=== PATIENT | female | born 1945 | race African-American/Black ===

== ENCOUNTER 2022-02-11 20:21 | Observation (INO) | payer MEDICARE, SELFPAY ==
[2022-02-11] MEDS ORDERED: Nitroglycerin 2% Ointment 1 INCH/1 GM Packet ONE (20:53)
[2022-02-11] MEDS ORDERED: Labetalol HCl 100 MG/20 ML VIAL ONE (20:53)
[2022-02-11 20:54] LABS: #Basophils 0.1 thou/uL (0.0-0.2); #Eosinphils 0.1 thou/uL (0.0-0.7); #Lymphocytes 3.5 thou/uL (1.20-3.40); #Monocytes 0.3 thou/uL (0.11-0.59); #Neutrophils 3.9 thou/uL (1.40-6.50); %Basophils 0.7 % (0.0-1.0); %Eosinophils 1.1 % (0.0-10.0); %Lymphocytes 44.8 % (21.0-51.0); %Monocytes 4.2 % (0.0-10.0); %Neutrophils 49.2 % (42.0-75.0); Hemoglobin 13.4 g/dL (12.0-16.0); Mean Corpuscular HGB CONC 32.8 g/dL (32.0-36.0); Mean Corpuscular Hemoglobin 30.1 pg (27.0-31.0); Mean Corpuscular Volume 91.6 fL (78.0-98.0); Mean Platelet Volume 7.1 fL (7.4-10.4); Platelet Count 339 thou/uL (130-400); RBC Distribution Width 13.1 % (11.5-14.5); Red Blood Cell (RBC) Count 4.46 mill/uL (4.20-5.40); White Blood Cell (WBC) Count 7.9 thou/uL (4.8-10.8)
[2022-02-11 21:13] LABS: ALT (SGPT) 23 U/L (8-55); AST (SGOT) 27 U/L (5-34); Albumin 4.7 g/dL (3.4-4.8); Alkaline Phosphatase 76 U/L (40-110); Anion Gap 15 mmol/L (10-20); BUN (Urea Nitrogen) 12 mg/dL (9.8-20.1); Bilirubin, Total 0.3 mg/dL (0.2-1.2); Calc. Creatinine Clearance 0 mL/min (70-130); Calcium 9.6 mg/dL (7.8-10.44); Carbon Dioxide 30 mmol/L (23-31); Chloride 102 mmol/L (98-107); Globulin 3.3 g/dL (2.4-3.5); Glucose 133 mg/dL (83-110); Potassium 3.5 mmol/L (3.5-5.1); Sodium 143 mmol/L (136-145)
[2022-02-11 21:34] LABS: CKMB 4.6 ng/mL (0-6.6)
[2022-02-11] MEDS ORDERED: hydrALAZINE 20 MG/ML VIAL ONE (21:49)
[2022-02-11] MEDS ORDERED: Aspirin 325 MG TAB ONE (21:49)
[2022-02-11] MEDS ORDERED: Bisacodyl 5 MG TAB PO PRN (22:21)
[2022-02-11] MEDS ORDERED: Zolpidem Tartrate 5 MG TAB PO PRN (22:21)
[2022-02-11] MEDS ORDERED: Acetaminophen 325 MG TAB PO PRN (22:21)
[2022-02-11] MEDS ORDERED: HYDROcodone/Acetaminophen 5/325 mg Tablet PO PRN (22:21)
[2022-02-11] MEDS ORDERED: Ondansetron PF 4 MG/2 ML Vial IVP PRN (22:21)
[2022-02-11] MEDS ORDERED: NIFEdipine XL 90 MG TAB PO SCH (22:23)
[2022-02-11] MEDS ORDERED: Morphine 2 MG/ML VIAL SLOW IVP SCH (22:30)
[2022-02-11] MEDS ORDERED: Triamterene/Hydrochlorothiazide 37.5 mg/25 mg Tablet PO SCH (22:30)
[2022-02-11] MEDS ORDERED: Clopidogrel Bisulfate 75 MG TAB PO SCH (22:39)
[2022-02-11] MEDS ORDERED: Aspirin 81 mg Enteric Coated Tablet PO SCH (22:45)
[2022-02-11 22:57] LABS: Bacteria/HPF 1+ HPF (None Seen); Bilirubin Negative (Negative); Blood, Urine 1+ (Negative); Clarity Turbid (Clear); Glucose, Urine (Dipstick) Normal (Negative); Ketone, Urine Negative (Negative); Leukocyte Negative Leu/uL (Negative); Nitrite Negative (Negative); Protein, Urine (Dipstick) 30 mg/dL (Neg-Trace); Specific Gravity, Urine 1.014 (1.002-1.036); Squamous Epithelial None Seen HPF (0-3); Urobilinogen Normal mg/dL (Less than 2); pH, Urine 7.5 (5.0-9.0)
[2022-02-12] MEDS ORDERED: Clopidogrel Bisulfate 75 MG TAB PO SCH ×2 (00:45→09:00)
[2022-02-12 00:47] LABS: Troponin I 0.056 ng/mL (< 0.028)
[2022-02-12] MEDS ORDERED: NIFEdipine XL 90 MG TAB PO SCH (02:15)
[2022-02-12 02:52] VITALS: BMI 31.1
[2022-02-12 03:08] LABS: Cardiac Risk 3.9 (Less than 4.5)
[2022-02-12 03:13] LABS: Troponin I 0.047 ng/mL (< 0.028)
[2022-02-12] MEDS ORDERED: Metoprolol Tartrate 50 MG TAB PO SCH ×2 (04:15→21:00)
[2022-02-12] MEDS ORDERED: Aspirin 81 mg Enteric Coated Tablet PO SCH (09:00)
[2022-02-12] MEDS ORDERED: Triamterene/Hydrochlorothiazide 37.5 mg/25 mg Tablet PO SCH (09:00)
[2022-02-12] MEDS ORDERED: Enoxaparin Sodium 40 MG/0.4 ML SYRINGE SC SCH (09:00)
[2022-02-12] MEDS ORDERED: Famotidine 20 MG TAB PO SCH (09:00)
[2022-02-12 12:06] VITALS: BP 160/84; TEMP 98
[2022-02-12] MEDS ORDERED: hydrALAZINE 25 MG TAB PO SCH (12:15)
[2022-02-13] MEDS ORDERED: NIFEdipine XL 90 MG TAB PO SCH (09:00)
== END 2022-02-12 13:38 | disposition home or self-care (01) ==
LOC: ERS 20:21 → NEURO 22:09
PROVIDERS: ADMIT Family Medicine; ATTEND Family Medicine
DX: I16.0 Hypertensive urgency (principal); G44.209 Tension-type headache, unspecified, not intractable; R77.8 Other specified abnormalities of plasma proteins; I10 Essential (primary) hypertension; Z23 Encounter for immunization; Z88.0 Allergy status to penicillin; Z20.822 Contact with and (suspected) exposure to COVID-19
CPT/HCPCS: 70450; 80061; 82553; 83880; 84484 ×3; 90732; 93005; 96374; 96375; 99285; G0009; J2270; U0003; U0005; 36415; 80053; 81003; 81015; 84443; 85025; 90471; 96372; G0378; J0360; J1650